=== PATIENT | male | born 2000 | race Caucasian/White ===

== ENCOUNTER 2023-01-31 16:21 | Emergency (ER) | payer SELFPAY ==
[~2023-01-31] VITALS: Ht 177.8 cm; Wt 109.0 kg
[2023-01-31] MEDS ORDERED: OMNI-PAC300 MG PO (17:41)
[2023-01-31 17:56] LABS: BASO% 0.3 % (0-3); EOS% 0.8 % (0-8); HEMATOCRIT 46.8 % (39.0-50.0); HEMOGLOBIN 15.7 g/dl (14.0-18.0); IMMATURE GRANULOCYTES 0.3 % (0.0-5.0); LYMPH% 13.2 % (15-41); MEAN CELL VOLUME 85.7 fL CALC (80.0-100.0); MEAN CORPUSCULAR HGB 28.8 pG CALC (26.0-32.0); MEAN CORPUSCULAR HGB CONC 33.5 g/dL CAL (32.0-36.0); MONO% 6.9 % (2-13); NEUT# 11.87 thou/uL (1.82-7.42); NEUT% 78.5 % (42-76); RED BLOOD COUNT 5.46 mill/uL (4.70-6.10); RED CELL DISTRI WIDTH 12.6 % (11.5-15.5)
[2023-01-31 18:06] LABS: ALBUMIN 5.2 g/dL (3.2-5.0); ALKALINE PHOSPHATASE 77 u/l (38-126); ANION GAP 18 (6-22 (CALC)); BILIRUBIN, TOTAL 1.2 mg/dL (0.2-1.3); BUN 27 mg/dL (9-20); BUN/CREATININE RATIO 19 (12-20 (CALC)); CARBON DIOXIDE 21 mmol/l (22-30); CHLORIDE 100 mmol/l (95-108); CPK 232 u/l (55-170); CREATININE 1.4 mg/dL (0.7-1.3); GFR FOR AFR.AMER. > 60 ML/MIN (>=60 (CALC)); GFR OTHER RACES > 60 ML/MIN (>=60 (CALC)); POTASSIUM 4.4 mmol/l (3.5-5.1); SGOT/AST 51 u/l (17-59); SODIUM 135 mmol/l (137-146); TOTAL PROTEIN 8.8 g/dL (6.3-8.2)
[2023-01-31 19:00] VITALS: BP 114/51
[2023-01-31 20:40] VITALS: BP 122/70
== END 2023-01-31 20:40 | disposition home or self-care (01) | DRG 605 ==
LOC: ED 16:21
PROVIDERS: Family Medicine
PROC: 0HQKXZZ Repair Right Lower Leg Skin, External Approach (ICD-10-PCS; principal; 2023-01-31)
DX: S81.811A Laceration without foreign body, right lower leg, initial encounter (principal); W26.8XXA Contact with other sharp object(s), not elsewhere classified, initial encounter; Y92.89 Other specified places as the place of occurrence of the external cause; Y99.0 Civilian activity done for income or pay